=== PATIENT | female | born 1980 | race Caucasian/White ===

== ENCOUNTER 2017-12-23 17:54 | Emergency (ER) | payer OTHER ==
[~2017-12-23] VITALS: Ht 172.7 cm; Wt 68.0 kg
--- NOTE | 2017-12-23 18:56 | NUR ---
Dr Grey at the bedside for MSE.
[2017-12-23] MEDS ORDERED: KETOROLAC TROMETHAMINE 60 MG INJ IM ONE ×2 (19:11→19:15)
[2017-12-23 19:28] LABS: *URINE HCG, QUAL POSITIVE (NEGATIVE)
[2017-12-23 20:10] VITALS: BP 122/78
--- NOTE | 2017-12-23 20:10 | NUR ---
Patient discharged to home in stable conditon. Written and verbal after care instructions given. Patient verbalizes understanding of instructions.
== END 2017-12-23 20:11 | disposition home or self-care (01) ==
LOC: ER 17:58
DX: G89.29 Other chronic pain (principal); M54.6 Pain in thoracic spine
CPT/HCPCS: 84703; A4663; J1885

== ENCOUNTER 2018-12-06 10:52 | Emergency (ER) | payer OTHER ==
[~2018-12-06] VITALS: Ht 172.7 cm; Wt 88.5 kg
[2018-12-06 11:19] LABS: *URINE HCG, QUAL NEGATIVE (NEGATIVE)
[2018-12-06 11:20] LABS: *BILIRUBIN,URIN 1+ (NEGATIVE); *BLOOD, URINE Trace-intact (NEGATIVE); *COLOR,URINE YELLOW (YELLOW); *KETONES,URINE 1+ (NEGATIVE); LEUKOCYTE ESTERASE ,URINE NEGATIVE (NEGATIVE); NITRITE, URINE NEGATIVE (NEGATIVE); UGLUCOSE NEGATIVE (NEGATIVE)
[2018-12-06 11:32] LABS: *CLARITY,URINE HAZY (CLEAR)
[2018-12-06 11:35] LABS: BACTERIA,URINE MANY /HPF (NONE SEEN)
[2018-12-06 11:36] LABS: MUCUS,URINE MANY /LPF (0-FEW)
[2018-12-06 11:43] LABS: BASOPHILS % (AUTO) 0.6 % (0.0-2.0); EOSINOPHILS # (AUTO) 0.1 K/uL (0.0-0.7); EOSINOPHILS % (AUTO) 1.6 % (0.0-7.0); HEMATOCRIT 36.1 % (31.2-41.9); HEMOGLOBIN 12.1 g/dL (10.9-14.3); LYMPHOCYTES # (AUTO) 2.4 K/uL (20.0-40.0); LYMPHOCYTES % (AUTO) 30.8 % (20.5-51.5); MEAN CORPUSCULAR HEMOGLOBIN 31.2 uug (24.7-32.8); MEAN CORPUSCULAR HGB CONC 34 g/dL (32.3-35.6); MEAN CORPUSCULAR VOLUME 92.8 fL (75.5-95.3); MONOCYTES # (AUTO) 0.8 K/uL (2.0-10.0); MONOCYTES % (AUTO) 10.4 % (0.0-11.0); NEUTROPHILS # (AUTO) 4.5 K/uL (1.8-8.9); NEUTROPHILS % (AUTO) 56.6 % (38.5-71.5); PLATELET COUNT (AUTO) 303 K/uL (179-408); RED BLOOD CELL COUNT(AUTO) 3.88 MIL/uL (3.63-4.92); WHITE BLOOD COUNT (AUTO) 7.9 K/uL (3.8-11.8)
[2018-12-06 11:51] LABS: CARBON DIOXIDE 28 mmol/L (21-32); CHLORIDE 106 mmol/L (98-107); CREATININE 0.8 mg/dL (0.6-1.3); GLUCOSE 93 mg/dL (74-106); POTASSIUM 4.1 mmol/L (3.5-5.1); UREA NITROGEN, BLOOD 11 mg/dL (7-18)
[2018-12-06 11:57] LABS: ALANINE AMINOTRANSFERASE 19 U/L (14-59); ALKALINE PHOSPHATASE 50 U/L (50-136); ASPARTATE AMINOTRANSFERASE 12 U/L (15-37); BILIRUBIN,DIRECT 0.1 mg/dL (0.0-0.2); BILIRUBIN,TOTAL 0.3 mg/dL (0.2-1.0); LIPASE 207 U/L (73-393)
--- NOTE | 2018-12-06 13:34 | NUR ---
Patient discharged to home in stable conditon. Written and verbal after care instructions given. Patient verbalizes understanding of instructions.PT WALKS IN STEADY GAIT. A COPY OF ALL THE STUDIES PROVIDED FOR PT FOR FOLLOW UP.
[2018-12-06 13:36] VITALS: BP 110/67
== END 2018-12-06 13:37 | disposition home or self-care (01) ==
LOC: ER 10:52
DX: N83.201 Unspecified ovarian cyst, right side (principal); G89.29 Other chronic pain; M54.5 Low back pain
CPT/HCPCS: 36415; 70030-TC; 71045; 76856; 83690; 84703; 85025; 85730; 93005; A4663

== ENCOUNTER 2018-12-12 12:26 | Emergency (ER) | payer MEDICAID, OTHER ==
[~2018-12-12] VITALS: Ht 172.7 cm; Wt 88.5 kg
== END 2018-12-12 13:14 | disposition home or self-care (01) ==
LOC: ER 12:26
DX: L03.012 Cellulitis of left finger (principal)
CPT/HCPCS: A4663

== ENCOUNTER 2019-12-23 13:07 | Emergency (ER) | payer MEDICAID, OTHER ==
[~2019-12-23] VITALS: Ht 172.7 cm; Wt 90.7 kg
[2019-12-23] MEDS ORDERED: HYDROCODONE/APAP 5-325MG TABLET PO ONE (13:30)
[2019-12-23] MEDS ORDERED: HYDROCODONE/APAP 5-325MG TABLET ONE (13:34)
--- NOTE | 2019-12-23 13:40 | NUR ---
PT IS IN ROOM #2B. DR PEREZ EVALUATED THE PT.
--- NOTE | 2019-12-23 14:03 | NUR ---
PT WAS D/C'D TO HOME AFTER DR PEREZ EVALUATION. D/C INSTRUCTIONS GIVEN TO THE PT BY DR PEREZ.
[2019-12-23 14:12] VITALS: BP 132/78
== END 2019-12-23 14:13 | disposition home or self-care (01) ==
LOC: ER 13:07
DX: M25.531 Pain in right wrist (principal)
CPT/HCPCS: 73110; A4663

== ENCOUNTER 2020-05-21 11:47 | Emergency (ER) | payer MEDICAID, OTHER ==
[~2020-05-21] VITALS: Ht 172.7 cm; Wt 90.7 kg
[2020-05-21] MEDS ORDERED: HYDROMORPHONE 2 MG/1 ML DISP.SYRIN ONE (12:30)
[2020-05-21] MEDS ORDERED: ONDANSETRON 4 MG/2 ML VIAL ONE (12:30)
[2020-05-21] MEDS: HYDROMORPHONE 1 MG/1 ML DISP.SYRIN IM ONE (12:31)
[2020-05-21] MEDS: ONDANSETRON 4 MG/2 ML VIAL IM ONE (12:31)
--- NOTE | 2020-05-21 12:33 | NUR ---
Patient discharged to home in stable condition. Written and verbal after care instructions given. Patient verbalizes understanding of instructions. Stressed follow up or return to ER for worsening s/s.pt not driving.
== END 2020-05-21 12:36 | disposition home or self-care (01) ==
LOC: ER 11:47
DX: G43.909 Migraine, unspecified, not intractable, without status migrainosus (principal)
CPT/HCPCS: 96372; 99283; J1170; J2405; A4663

== ENCOUNTER 2020-08-09 08:35 | Emergency (ER) | payer BC, MEDICAID, OTHER ==
[~2020-08-09] VITALS: Ht 172.7 cm; Wt 90.7 kg
[2020-08-09 08:53] LABS: *BLOOD, URINE 3+ (NEGATIVE); *CLARITY,URINE CLOUDY (CLEAR); *COLOR,URINE DARK YELLOW (YELLOW); *KETONES,URINE 1+ (NEGATIVE); LEUKOCYTE ESTERASE ,URINE 3+ (NEGATIVE); NITRITE, URINE POSITIVE (NEGATIVE); PH,URINE 5.5 (5.0-8.0); UGLUCOSE NEGATIVE (NEGATIVE)
[2020-08-09 08:56] LABS: *URINE HCG, QUAL NEG (NEGATIVE)
[2020-08-09 08:57] LABS: *BILIRUBIN,URIN 1+ (NEGATIVE)
--- NOTE | 2020-08-09 09:00 | NUR ---
patient was seen by . Urine sent to lab
[2020-08-09 09:33] LABS: BASOPHILS # (AUTO) 0.1 K/uL (0.0-8.0); BASOPHILS % (AUTO) 0.5 % (0.0-2.0); EOSINOPHILS # (AUTO) 0.1 K/uL (0.0-0.7); EOSINOPHILS % (AUTO) 0.8 % (0.0-7.0); HEMATOCRIT 37.3 % (31.2-41.9); HEMOGLOBIN 12.2 g/dL (10.9-14.3); LYMPHOCYTES # (AUTO) 1.9 K/uL (20.0-40.0); LYMPHOCYTES % (AUTO) 12.3 % (20.5-51.5); MEAN CORPUSCULAR HEMOGLOBIN 30.4 uug (24.7-32.8); MEAN CORPUSCULAR HGB CONC 33 g/dL (32.3-35.6); MEAN CORPUSCULAR VOLUME 92.8 fL (75.5-95.3); MONOCYTES # (AUTO) 1.2 K/uL (2.0-10.0); MONOCYTES % (AUTO) 7.8 % (0.0-11.0); NEUTROPHILS # (AUTO) 11.9 K/uL (1.8-8.9); NEUTROPHILS % (AUTO) 78.6 % (38.5-71.5); PLATELET COUNT (AUTO) 274 K/uL (179-408); RED BLOOD CELL COUNT(AUTO) 4.02 MIL/uL (3.63-4.92); WHITE BLOOD COUNT (AUTO) 15.1 K/uL (3.8-11.8)
[2020-08-09 09:35] LABS: CREATININE 0.9 mg/dL (0.6-1.3); POTASSIUM 4.7 mmol/L (3.5-5.1)
[2020-08-09] MEDS ORDERED: CEFTRIAXONE 1 G VIAL IM ONE (09:45)
[2020-08-09] MEDS ORDERED: IBUPROFEN 600 MG TABLET PO ONE (09:45)
[2020-08-09] MEDS ORDERED: PHENAZOPYRIDINE HCL 100 MG TABLET PO ONE (09:45)
[2020-08-09] MEDS ORDERED: LIDOCAINE HCL 1% 20 ML VIAL ONE (09:48)
[2020-08-09] MEDS ORDERED: IBUPROFEN 600 MG TABLET ONE (09:48)
[2020-08-09] MEDS ORDERED: CEFTRIAXONE 1 G VIAL ONE (09:48)
[2020-08-09] MEDS ORDERED: PHENAZOPYRIDINE HCL 100 MG TABLET ONE (09:49)
--- NOTE | 2020-08-09 10:05 | NUR ---
DC, RX AND F/U INSTRUCTIONS GIVEN AND EXPLAINED TO PATIENT WHO STATES SHE UNDERSTANDS ALL INSTRUCTIONS
[2020-08-09 12:31] LABS: BACTERIA,URINE FEW /HPF (NONE SEEN); RBC,URINE 20-50 /HPF (0-3); SQUAMOUS EPITHELIAL CELL,UR FEW /HPF (NONE SEEN); WBC,URINE TNTC /HPF (0-3)
== END 2020-08-09 10:07 | disposition home or self-care (01) ==
LOC: ER 08:35
DX: N30.01 Acute cystitis with hematuria (principal); Z87.442 Personal history of urinary calculi
CPT/HCPCS: 36415; 76770; 80048; 81001; 84703; 85025; 87077; 87086; 87186; 96372; 99284; J0696; J3490; A4663

== ENCOUNTER 2021-03-19 11:37 | Emergency (ER) | payer MEDICAID, OTHER ==
[~2021-03-19] VITALS: Ht 172.7 cm; Wt 90.7 kg
[2021-03-19] MEDS ORDERED: ONDA4TAB5 PO (11:53)
[2021-03-19] MEDS ORDERED: HYDR-3980 PO (11:53)
[2021-03-19] MEDS ORDERED: HYDROMORPHONE 1 MG/1 ML DISP.SYRIN IM ONE (12:00)
[2021-03-19] MEDS ORDERED: ONDANSETRON 4 MG/2 ML VIAL IM ONE (12:00)
[2021-03-19] MEDS ORDERED: ONDANSETRON 4 MG/2 ML VIAL ONE (12:02)
[2021-03-19] MEDS ORDERED: HYDROMORPHONE 2 MG/1 ML DISP.SYRIN ONE (12:02)
--- NOTE | 2021-03-19 12:06 | NUR ---
Patient discharged to home in stable condition. Written and verbal after care instructions given. Patient verbalizes understanding of instructions. Stressed follow up or return to ER for worsening s/s.pt here to take the pt home
== END 2021-03-19 12:07 | disposition home or self-care (01) ==
LOC: ER 11:37
DX: G43.909 Migraine, unspecified, not intractable, without status migrainosus (principal)
CPT/HCPCS: 96372 ×2; 99284; J1170; J2405; A4663

== ENCOUNTER 2021-09-22 07:14 | Emergency (ER) | payer OTHER, BC ==
[~2021-09-22] VITALS: Ht 172.7 cm; Wt 86.2 kg
[~2021-09-22 07:14] MED LIST: HYDR-3980 PO; ONDA4TAB5 PO
[2021-09-22 07:48] LABS: *URINE HCG, QUAL NEGATIVE (NEGATIVE)
[2021-09-22] MEDS ORDERED: KETOROLAC TROMETHAMINE 60 MG INJ IM ONE ×2 (08:15→08:18)
--- NOTE | 2021-09-22 08:43 | NUR ---
Medication administered to (L) glut. Pt denies any adverse event from medication with improvment in P/S.
[2021-09-22 09:01] VITALS: BP 144/79
[2021-09-22] MEDS ORDERED: IBUP-1955 PO (09:01)
--- NOTE | 2021-09-22 09:17 | NUR ---
Patient discharged to home in stable condition. Written and verbal after care instructions given. Patient verbalizes understanding of instructions. Stressed follow up or return to ER for worsening s/s.
== END 2021-09-22 09:18 | disposition home or self-care (01) ==
LOC: ER 07:15
DX: S93.602A Unspecified sprain of left foot, initial encounter (principal); S70.12XA Contusion of left thigh, initial encounter; W17.89XA Other fall from one level to another, initial encounter; Y93.89 Activity, other specified; Y92.038 Other place in apartment as the place of occurrence of the external cause
CPT/HCPCS: 73630; 84703; 96372; 99284; J1885; A4663

== ENCOUNTER 2021-11-28 13:13 | Emergency (ER) | payer OTHER, BC ==
[~2021-11-28] VITALS: Ht 172.7 cm; Wt 86.2 kg
[~2021-11-28 13:13] MED LIST changes: -HYDR-3980 PO; +IBUP-1955 PO; -ONDA4TAB5 PO
--- NOTE | 2021-11-28 13:31 | NUR ---
PT IS IN BED #1B. DR MAHAN EVALUATED THE PT.
[2021-11-28] MEDS ORDERED: PRED20TA PO (13:47)
[2021-11-28] MEDS ORDERED: BENZ-13 PO (13:48)
--- NOTE | 2021-11-28 14:34 | NUR ---
PT WAS D/C'd TO HOME. D/C INSTRUCTIONS GIVEN TO THE PT BY DR MAHAN.
[2021-11-28 14:35] VITALS: BP 139/75
== END 2021-11-28 14:36 | disposition home or self-care (01) ==
LOC: ER 13:13
DX: R05.9 Cough, unspecified (principal); G43.909 Migraine, unspecified, not intractable, without status migrainosus; Z79.1 Long term (current) use of non-steroidal anti-inflammatories (NSAID); Z79.899 Other long term (current) drug therapy; Z20.822 Contact with and (suspected) exposure to COVID-19
CPT/HCPCS: 71045; A4663

== ENCOUNTER 2022-11-24 11:30 | Emergency (ER) | payer OTHER ==
[~2022-11-24] VITALS: Ht 172.7 cm; Wt 86.2 kg
[~2022-11-24 11:30] MED LIST changes: +BENZ-13 PO; +PRED20TA PO
[2022-11-24] MEDS ORDERED: KETOROLAC TROMETHAMINE 30 MG INJ ONE (11:53)
[2022-11-24] MEDS ORDERED: METOCLOPRAMIDE HCL 10 MG/2 ML VIAL ONE (11:53)
[2022-11-24] MEDS ORDERED: IV NORMAL SALINE 1000 ML BAG IV ONE (12:00)
[2022-11-24] MEDS ORDERED: METOCLOPRAMIDE HCL 10 MG/2 ML VIAL IV ONE (12:00)
[2022-11-24] MEDS ORDERED: KETOROLAC TROMETHAMINE 30 MG INJ IVP ONE (12:00)
--- NOTE | 2022-11-24 13:15 | NUR ---
Patient states her headache has improved.
[2022-11-24] MEDS ORDERED: NAPR-1164 PO (13:31)
--- NOTE | 2022-11-24 13:39 | NUR ---
Patient discharged to home in stable condition. Written and verbal after care instructions given. Patient verbalizes understanding of instructions. Patient ambulate with steady gait. IV removed. Stressed follow up or return to ER for worsening s/s.
[2022-11-24 13:40] VITALS: BP 118/83
== END 2022-11-24 13:40 | disposition home or self-care (01) ==
LOC: ER 11:30
DX: G44.209 Tension-type headache, unspecified, not intractable (principal)
CPT/HCPCS: 99284; 96374; 96361; 96375; J1885; J2765; A4663; J7040

== ENCOUNTER 2025-03-29 14:49 | Emergency (ER) | payer MEDICAID, OTHER ==
[~2025-03-29] VITALS: Ht 172.7 cm; Wt 86.2 kg
[~2025-03-29 14:49] MED LIST changes: +NAPR-1164 PO
[2025-03-29] MEDS ORDERED: LIDOCAINE HCL 1% 20 ML VIAL ONE (15:53)
[2025-03-29] MEDS ORDERED: methylPREDNISolone ACETATE 40 MG VIAL ONE (15:53)
[2025-03-29] MEDS: methylPREDNISolone ACETATE 40 MG VIAL IM ONE (16:05)
[2025-03-29] MEDS: LIDOCAINE HCL 1% 20 ML VIAL TP ONE (16:05)
[2025-03-29 16:33] VITALS: BP 110/76; TEMP 98.4; O2SAT 99
== END 2025-03-29 16:35 | disposition home or self-care (01) ==
LOC: ER 14:49
DX: M23.8X1 Other internal derangements of right knee (principal); G43.909 Migraine, unspecified, not intractable, without status migrainosus; Z79.52 Long term (current) use of systemic steroids; Z90.710 Acquired absence of both cervix and uterus; Z87.19 Personal history of other diseases of the digestive system; Z87.39 Personal history of other diseases of the musculoskeletal system and connective tissue; Z60.2 Problems related to living alone
CPT/HCPCS: 20610; 99283; 73564; J1010; J3490; A4606; A4663